=== PATIENT | male | born 1995 | race Caucasian/White ===

== ENCOUNTER 2016-07-05 02:27 | Emergency (ER) | payer SELFPAY ==
[~2016-07-05] VITALS: Ht 180.3 cm; Wt 72.7 kg
[2016-07-05 02:28] VITALS: BP 161/93
[2016-07-05] MEDS ORDERED: LIDOCAINE 1%, 20ML ONE (02:49)
[2016-07-05] MEDS ORDERED: LIDOCAINE 1%, 20ML SQ ONE ×2 (03:00→03:30)
[2016-07-05] MEDS ORDERED: BACITRACIN ZINC OINT 500U/GM, 0.9 GM ONE (04:10)
== END 2016-07-05 04:36 | disposition home or self-care (01) ==
LOC: ED 03:17
DX: S61.214A Laceration without foreign body of right ring finger without damage to nail, initial encounter (principal); X58.XXXA Exposure to other specified factors, initial encounter; Y93.89 Activity, other specified; Y92.89 Other specified places as the place of occurrence of the external cause; Y99.8 Other external cause status
CPT/HCPCS: 12001; 99283